=== PATIENT | female | born 1945 | race Caucasian/White ===

== ENCOUNTER → 2018-10-19 | Outpatient (CLI) | payer MEDICARE ==
--- NOTE | 2018-10-19 15:21 | MY ---
Screening Tomosynthesis Bi HISTORY: Screening COMPARISON: 2018 TECHNIQUE: Digital breast tomosynthesis technique performed. C views and 3D source images in the CC and MLO projections reviewed. Computer-Aided Detection system was utilized. BREAST DENSITY: There are scattered areas of fibroglandular density. FINDINGS: There are some benign-appearing calcifications in the left breast There is no dominant mass, skin thickening, or nipple retraction. No suspicious calcifications are seen. IMPRESSION: No evidence of underlying malignancy or suspicious interval change. RECOMMENDATION: One-year mammographic follow-up is recommended as per ACR guidelines. BI-RADS 2: Benign finding.
== END ==
LOC: JP.MAM 12:22
PROVIDERS: ATTEND Family Medicine
DX: Z12.31 Encounter for screening mammogram for malignant neoplasm of breast (principal)
CPT/HCPCS: 77063; 77063-26; 77067; 77067-26

== ENCOUNTER 2018-11-03 07:18 | Day surgery (SDC) | payer MEDICARE ==
[2018-11-03] MEDS ORDERED: fentaNYL 100 MCG/2 ML SDV ONE (07:28)
[2018-11-03] MEDS ORDERED: Propofol 200 MG/20 ML SDV ONE (07:28)
[2018-11-03] MEDS ORDERED: Sodium Chloride 0.9% 1,000 ML IV SCH (07:45)
--- NOTE | 2018-11-04 08:16 | OR ---
DATE OF PROCEDURE: 11/03/2018 PROCEDURE: Colonoscopy. FINDINGS: Diverticulosis, mild, mostly limited to sigmoid colon. COMPLICATION: None. SURGEON: Galo Harrison MD MANAGER STRATEGIC ALLIANCES: None. ANESTHESIA: MAC. PREOPERATIVE DIAGNOSIS: Screening colonoscopy. POSTOPERATIVE DIAGNOSIS: Screening colonoscopy. RISKS: Risks, benefits, alternatives, and limitations including, but not limited to infection, bleeding, and perforation were explained to the patient, who wished to proceed. PROCEDURE IN DETAIL: The patient was placed in left lateral decubitus position. Digital rectal exam was performed without abnormality. The scope was introduced and advanced atraumatically to the ileocecal valve. The scope was brought back through the ascending, transverse, descending colon, and retroflexed. No evidence of old or new blood. No masses. No polyps. No gastritis or other abnormalities, aside from the mild diverticulitis, normal, retroflexed. The patient tolerated the procedure well. Galo Harrison MD /[id number]
== END 2018-11-03 10:39 | disposition home or self-care (01) ==
LOC: JP.SDS 07:18
PROVIDERS: ATTEND Surgery
DX: Z12.11 Encounter for screening for malignant neoplasm of colon (principal); K57.30 Diverticulosis of large intestine without perforation or abscess without bleeding; K21.9 Gastro-esophageal reflux disease without esophagitis; E03.9 Hypothyroidism, unspecified; M19.90 Unspecified osteoarthritis, unspecified site
CPT/HCPCS: G0121; J2704; J3010; J7030